=== PATIENT | male | born 1990 | race Caucasian/White ===

== ENCOUNTER 2022-09-11 12:00 | Emergency (ER) | payer MEDICAID ==
[2022-09-11] MEDS: Ketorolac 30 MG/ML SDV IM ONE (12:28)
[2022-09-11] MEDS: oxyCODONE 5 MG Tab PO ONE (13:31)
[2022-09-11] MEDS: Take Home: Acetaminophen/oxyCODONE 325-5 MG, 5 Tab Pack PO ONE (13:34)
== END 2022-09-11 13:39 | disposition home or self-care (01) ==
LOC: MERGE 12:00 → VM.ED 12:00
DX: S93.402A Sprain of unspecified ligament of left ankle, initial encounter (principal); Z88.5 Allergy status to narcotic agent; Z88.0 Allergy status to penicillin; Z88.8 Allergy status to other drugs, medicaments and biological substances; Z79.899 Other long term (current) drug therapy; X50.1XXA Overexertion from prolonged static or awkward postures, initial encounter
CPT/HCPCS: 73610-LT; 96372; 99283; A9270-GY; J1885